=== PATIENT | male | born 1960 | race Caucasian/White ===

== ENCOUNTER 2017-01-28 14:28 | Day surgery (SDC) | payer OTHER ==
[2017-01-28] VITALS (11 sets, daily range): BP systolic 100–141; BP diastolic 70–84; PULSE 72–90; RESP 12–26; Ht 172.7 cm; Wt 117.9 kg
[~2017-01-28] VITALS: Ht 172.7 cm; Wt 117.9 kg
[~2017-01-28 14:28] MED LIST: APAP; ARIP30TA10; ASPI-650; CHLO25TA13; HYDR-3012; LACTATED RINGER'S 1,000 ML IV* SCH
[2017-01-28] MEDS ORDERED: ASPI-664 PO (14:58)
[2017-01-28] MEDS ORDERED: FLUT16SP17 NASAL (14:59)
[2017-01-28] MEDS ORDERED: LORA-186 PO (14:59)
[2017-01-28] MEDS ORDERED: CHLO25TA13 PO (14:59)
[2017-01-28] MEDS ORDERED: ATOR20TA38 PO (15:00)
[2017-01-28] MEDS ORDERED: IBUP800T25 PO (15:00)
[2017-01-28] MEDS ORDERED: LORA10TA3 PO (15:01)
[2017-01-28] MEDS ORDERED: AMLO5TAB4 PO (15:01)
[2017-01-28] MEDS ORDERED: LISI10TA2 PO (15:01)
[2017-01-28] MEDS ORDERED: NOVMIX SC (15:02)
[2017-01-28] MEDS ORDERED: BUPR-34 PO (15:03)
[2017-01-28] MEDS ORDERED: LIDOCAINE 2% (SDV) 5 ML INJ ONE (15:26)
[2017-01-28] MEDS ORDERED: PROPOFOL 20 ML ONE (15:26)
[2017-01-28] MEDS ORDERED: FENTAnyl 50 MCG/ML VIAL ONE (15:27)
[2017-01-28] MEDS ORDERED: MIDAZOLAM 1 MG/ML 2 ML INJ ONE (15:27)
[2017-01-28] MEDS ORDERED: LIDOCAINE 1% (STERILE-PAK) 30 ML INJ ONE (15:29)
[2017-01-28] MEDS ORDERED: BUPIVACAINE 0.25% (MPF) 30 ML INJ ONE (15:29)
[2017-01-28] MEDS ORDERED: CEFAZOLIN 1 GM INJ ONE (15:31)
--- NOTE | 2017-01-28 15:39 | HPN ---
Date/Time of Note Date/Time of Note DATE: 01/28/17 TIME: 15:38 Interval H&P Admission Note Pt. seen H&P reviewed: No system changes JASWANT SERRANO Jan 28, 2017 15:39
[2017-01-28] MEDS ORDERED: BUPIVACAINE 0.5% (SDV) 30 ML INJ ONE (15:40)
[2017-01-28] MEDS ORDERED: METOCLOPRAMIDE 10 MG INJ ONE (15:50)
[2017-01-28] MEDS ORDERED: ONDANSETRON 4 MG INJ ONE (15:50)
[2017-01-28] MEDS ORDERED: KETOROLAC 30 MG INJ ONE (16:07)
--- NOTE | 2017-01-28 16:32 | OPPN ---
Date/Time of Note Date/Time of Note DATE: 01/28/17 TIME: 16:31 Operative Report Preoperative Diagnosis right thumb deep mass Postoperative Diagnosis right thumb deep mass, 1.5cm x 2cm, GCTTS Operation/Procedure Performed excision of right thumb deep mass, 1.5cm x 2cm, GCTTS Provider: JASWANT SERRANO Anesthesia Type: general, other Estimated blood loss: 0 - 10 ml's Transfusion Required: no Specimen: none Grafts/Implants: none Complications: no JASWANT SERRANO Jan 28, 2017 16:32
[2017-01-28] MEDS ORDERED: INSULIN ASPART [NOVOLOG] 3 ML PEN SC ONE (17:00)
[2017-01-28] MEDS ORDERED: MEPERIDINE 25 MG INJ IV PRN (17:00)
[2017-01-28] MEDS ORDERED: OXYCODONE/ACETAMINOPHEN (5/325) TAB PO PRN ×2 (17:00)
[2017-01-28] MEDS ORDERED: GLUCAGON 1 MG INJ IM PRN (17:00)
[2017-01-28] MEDS ORDERED: FENTAnyl 50 MCG/ML VIAL IV PRN (17:00)
[2017-01-28] MEDS ORDERED: hydrALAzine 20 MG INJ IV PRN (17:00)
[2017-01-28] MEDS ORDERED: ONDANSETRON 4 MG INJ IV PRN (17:00)
[2017-01-28] MEDS ORDERED: DIPHENHYDRAMINE 50 MG INJ IV PRN (17:00)
[2017-01-28] MEDS ORDERED: LABETALOL HCL 20MG INJ IV PRN (17:00)
[2017-01-28] MEDS ORDERED: GLUCOSE GEL 15 GRAM TUBE PO PRN ×2 (17:00)
[2017-01-28] MEDS ORDERED: GLUCOSE GEL 15 GRAM TUBE BUCCAL PRN (17:00)
[2017-01-28] MEDS ORDERED: DEXTROSE 50% 50 ML SYRINGE IV PRN ×2 (17:00)
[2017-01-28] MEDS ORDERED: PROCHLORPERAZINE 10 MG INJ IV PRN (17:00)
[2017-01-28] MEDS ORDERED: HYDROCODONE/APAP (5/325) TAB PO PRN (17:30)
--- NOTE | 2017-01-28 19:43 | OPR ---
DATE OF OPERATION: 01/28/2017 SURGEON: Martínez Payan MD ANESTHESIA: General, plus local. PREOPERATIVE DIAGNOSIS: Right thumb mass 1 cm x 2 cm. POSTOPERATIVE DIAGNOSIS: Right thumb deep mass 1.5 cm x 2 cm, giant cell tumor tendon sheath. OPERATION PERFORMED: Excision of deep mass right thumb measuring 1.5 cm x 2 cm. OPERATIVE FINDINGS AT SURGERY: Right thumb mass with the appearance of a giant cell tumor tendon sheath, deeply involved with the neurovascular bundle on both the radial and ulnar aspects of thumb, as well as with the thumb flexor sheath. Measuring 1.5 cm x 2 cm with irregular borders. INDICATION: The patient is a 56-year-old male with longstanding right thumb mass. It was increasing in size and causing him discomfort. He elected to proceed with surgical intervention. OPERATIVE PROCEDURE: The patient was seen in the preoperative area. All further questions were answered. Again, he gave informed consent understanding the risks, benefits. He has taken to the operative suite, placed in supine position. He was placed under general anesthesia and 3 grams of Ancef IV was given. Tourniquet placed on right upper extremity. Right upper extremity is prepped with ChloraPrep stick and draped in usual sterile fashion. Esmarch bandage was used to exsanguinate the extremity. Tourniquet inflated to 250 mmHg. A zigzag incision from the tip of the thumb across the volar IP joint was utilized with sharp dissection carried down through skin and subcutaneous tissue. Scissor dissection divided the deep dermal layer, as well as the subcutaneous tissue overlying the mass. The ulnar neurovascular bundle was deeply invested within the overlying capsule as was the radial neurovascular bundle. These were carefully dissected off and the mass was circumferentially dissected out, and taken out as a whole with no remaining visible cells left. Wound was copiously irrigated. Skin closed with #5- 0 nylon. The flexor tendon was intact within the wound. Xeroform placed over the wounds, followed by sterile gauze, Webril, and Coban dressing. Tourniquet deflated after 22 minutes and the thumb was pink, warm and well perfused. Sponge, instrument counts correct. The patient was awakened from anesthesia and taken to postoperative suite in stable condition. The patient tolerated the procedure well, no complication. SPECIMEN: Right thumb mass. ESTIMATED BLOOD LOSS: 5 mL. TOURNIQUET TIME: 22 minutes. CONDITION ON DISCHARGE: Stable. Dictated By: Martínez Pyaan MD /[email or web address]/eva /Document#: [id number]
== END 2017-01-28 18:30 | disposition home or self-care (01) ==
LOC: SDS 14:28
PROVIDERS: ATTEND Orthopaedic Surgery Hand Surgery
DX: D48.5 Neoplasm of uncertain behavior of skin (principal); E11.9 Type 2 diabetes mellitus without complications; E66.2 Morbid (severe) obesity with alveolar hypoventilation; Z68.39 Body mass index [BMI] 39.0-39.9, adult; E78.5 Hyperlipidemia, unspecified
CPT/HCPCS: 11424; 82962; 88307; J0690; J1815; J1885; J2250; J2405; J2765; J3010